=== PATIENT | female | born 1950 | race Caucasian/White ===

== ENCOUNTER → 2017-11-26 | Outpatient (CLI) | payer OTHER ==
[~2017-11-26] VITALS: Ht 170.2 cm; Wt 74.8 kg
[~2017-11-26] MED LIST: CELEBREX 200 M200 M1 PO; CHLORTHALIDONE25 MG PO; CO Q-10100 MG PO; CRESTOR5 MG PO; FOLIC ACID1 MG PO; HYDROCODON-ACE1 EAC5 PO; METHOTREXATE 22.5 M1 PO; PREDNISONE 5 MG5 M1 PO; PROBIOTIC1 EAC1 PO; V-R WOMEN'S CO1 EACH PO; VITAMIN B-12500 MCG PO; VITAMIN D-32000 UNIT PO
--- NOTE | ~2017-11-26 | P ---
[facility] [place] [address] PROCEDURE REPORT Name: RADHA FERNANDES Room #: [facility]#: [id number] Admission: 11/26/17 Attend Phys: Govind Rivero MD Discharge: Date of : 48 Report #: [id number] THIS REPORT FOR: //name// CC: Govind Sevilla MD BRIEF HISTORY: The patient is a 67-year-old woman who had a recent bout of diverticulitis associated with pain. She also reports change in bowel habits with irregular stools. PREOPERATIVE DIAGNOSES: Change in bowel habits and recent diverticulitis, treated. POSTOPERATIVE DIAGNOSIS: Moderately severe left-sided diverticulosis coli, primarily sigmoid colon. MEDICATIONS: Deep sedation with propofol per anesthesia. SPECIMEN: None. ESTIMATED BLOOD LOSS: None. PROCEDURE: Colonoscopy to cecum and terminal ileum. FINDINGS: Prior to propofol sedation, the procedure of colonoscopy discussed with the patient as well as potential risks, benefits, and complications. She indicates she understands and desires to proceed. With the patient in left lateral decubitus, digital examination was completed, which revealed no abnormalities. Subsequently, the [employer] video colonoscope was introduced in the rectum, advanced under direct vision to the cecum. We had a difficult time traversing a very tortuous and sharply angled sigmoid colon, but with pressure, we were able to advance the scope through the sigmoid colon into the proximal colon. As the scope was advanced, appendiceal orifice was identified. We then were able to see the ileocecal valve. With some difficulty, we were able to advance the scope transiently into the distal terminal ileum and villous pattern was seen. No other abnormalities were seen. At that point, the scope was slowly withdrawn and careful circumferential views were obtained. The mucosa was within normal limits, normal vascular pattern, and normal light reflex. No inflammatory or neoplastic changes were seen. There is also noted the prep was excellent. As the scope was withdrawn, no additional abnormalities were seen other than the fairly extensive diverticular disease in the left colon, in particular the sigmoid colon. I might point out there were no obstructions or strictures. The scope was withdrawn in the rectum and no abnormalities were seen. Upon retroflexion, no abnormalities were seen. Scope was withdrawn. The patient tolerated the procedure well. [address] [address] PROCEDURE REPORT Name: DOMRADHA ENDER Room #: [facility].#: [id number] Admission: 11/26/17 Attend Phys: Govind Rivero MD Discharge: Date of : 48 Report #: [id number] CONDITION OF THE PATIENT UPON DISCHARGE: Following procedure, the patient drowsy, aroused and conversant. She will be discharged to home when fully ambulatory. INSTRUCTIONS TO THE PATIENT AND FAMILY AT THE TIME OF DISCHARGE: No neoplastic lesions were seen. Her last colonoscopy was in 2008. Suggest followup colon exam in 10 years. She does have extensive diverticular disease. This is her second episode of diverticulitis with the first about 10 years ago. Suggest high fiber diet. Seeds and nuts are now permissible as long as there are no intolerances. There are no evidence of acute inflammatory changes. As for her change in bowel habits, I do not see any obstructing or strictures. At this point, we would suggest fiber and a probiotic. She will follow up with Dr. Camila Sevilla, return to see me if she has any further symptoms. Last colonoscopy was in 2008. Withdrawal time from the cecum was 10 minutes and 28 seconds. <ELECTRONICALLY SIGNED> By: Govind Rivero MD 11/28/17 [id number] Govind Rivero MD /nt
== END | disposition home or self-care (01) ==
LOC: GI 07:25
DX: K57.30 Diverticulosis of large intestine without perforation or abscess without bleeding (principal); I10 Essential (primary) hypertension; E78.5 Hyperlipidemia, unspecified; K21.9 Gastro-esophageal reflux disease without esophagitis; Z90.710 Acquired absence of both cervix and uterus; Z98.41 Cataract extraction status, right eye; Z98.42 Cataract extraction status, left eye; Z98.890 Other specified postprocedural states; Z88.0 Allergy status to penicillin; Z88.8 Allergy status to other drugs, medicaments and biological substances; Z79.899 Other long term (current) drug therapy; Z87.19 Personal history of other diseases of the digestive system
CPT/HCPCS: 62110; 62900